=== PATIENT | male | born 1995 | race Two or more races ===

== ENCOUNTER 2023-04-16 21:08 | Emergency (ER) | payer OTHER ==
[~2023-04-16] VITALS: Ht 165.1 cm; Wt 77.1 kg
[2023-04-17] MEDS ORDERED: ONDANSETRON ODT4 MG PO (04:16)
[2023-04-17] MEDS ORDERED: PEPCID40 MG PO (04:16)
== END 2023-04-17 04:22 ==
LOC: ER 21:08
PROVIDERS: Emergency Medicine
DX: R10.9 Unspecified abdominal pain (principal); R11.10 Vomiting, unspecified